=== PATIENT | female | born 2000 | race Caucasian/White ===

== ENCOUNTER 2020-12-28 10:29 | Emergency (ER) | payer OTHER ==
[2020-12-28 10:37] VITALS: TEMP 98
--- NOTE | 2020-12-28 10:56 | ED ---
Female Urogenital HPI - General Chief complaint: Vaginal Bleeding Stated complaint: Female Time Seen by Provider: 12/28/20 10:38 Source: patient, family Mode of arrival: ambulatory Limitations: no limitations - History of Present Illness Initial comments: 20-year-old female with history of dysmenorrhea and menorrhagia presents to the emergency department with the chief complaint of vaginal bleeding. States she has been experiencing continuous vaginal bleeding for the past 3 months. She is seen multiple medical assistant ob gyn with no exact cause of her symptoms. She was told to be started on oral contraceptives but cannot take an due to side effects of nausea, vomiting and migraines. States she is going through a pad every half hour and is noticing blood clots as well. She also reports feeling slightly lightheaded but not dizzy. Denies any chest pain or shortness of breath. Denies any possibility for . She reports strong family history of uterine fibroids, menorrhagia and dysmenorrhea. She underwent a 10 day course of Provera, oral tablets with no significant improvement in her bleeding but now she is also developed abdominal cramping after finishing the medication 3 days ago. These were prescribed by Dr Lemons out of [facility]. Denies any vaginal discharge or foul smell. Denies hematuria, hematochezia or melena. Denies any infectious or obstructive urinary symptoms. Denies any fevers or chills. - Related Data Home Medications Medication Instructions Recorded Confirmed Acyclovir 400 mg PO DAILY 12/28/20 12/28/20 Ibuprofen [Motrin] 800 mg PO Q8H PRN 12/28/20 12/28/20 Allergies Allergy/AdvReac Type Severity Reaction Status Date / Time No Known Allergies Allergy Verified 12/28/20 12:20 Review of Systems ROS Statement: Those systems with pertinent positive or pertinent negative responses have been documented in the HPI. ROS Other: All systems not noted in ROS Statement are negative. Past Medical History Past Medical History: No Reported History History of Any Multi-Drug Resistant Organisms: None Reported Past Surgical History: No Surgical Hx Reported Past Psychological History: No Psychological Hx Reported Smoking Status: Never smoker Past Alcohol Use History: None Reported Past Drug Use History: None Reported General Exam Limitations: no limitations General appearance: alert, in no apparent distress, obese Head exam: Present: atraumatic, normocephalic, normal inspection. Absent: other Eye exam: Present: normal appearance, PERRL, EOMI Pupils: Present: normal accommodation ENT exam: Present: normal exam, normal oropharynx, mucous membranes moist, TM's normal bilaterally, normal external ear exam Neck exam: Present: normal inspection, full ROM. Absent: tenderness Respiratory exam: Present: normal lung sounds bilaterally. Absent: respiratory distress, wheezes, rales, rhonchi, stridor Cardiovascular Exam: Present: regular rate, normal rhythm, normal heart sounds. Absent: systolic murmur GI/Abdominal exam: Present: soft. Absent: distended, tenderness, guarding Extremities exam: Present: normal inspection, full ROM, normal capillary refill. Absent: tenderness, pedal edema, joint swelling Back exam: Present: normal inspection, full ROM. Absent: tenderness, CVA tenderness (R), CVA tenderness (L), muscle spasm, paraspinal tenderness Neurological exam: Present: alert, oriented X3 Psychiatric exam: Present: normal affect, normal mood Skin exam: Present: warm, dry, intact, normal color Course Vital Signs 12/28/20 12/28/20 10:30 12:50 Temperature 98.0 F Pulse Rate 108 H 83 Respiratory 18 16 Rate Blood Pressure 111/85 133/84 O2 Sat by Pulse 99 97 Oximetry Medical Decision Making - Medical Decision Making 20-year-old female with history of dysmenorrhea and menorrhagia presents to the emergency department with the chief complaint of vaginal bleeding. Physical examination is unremarkable. Offered pelvic exam, she declined. Ultrasound reveals a 1 cm endometrial stripe. Some physiologic free fluid in the cul-de-sac. CBC CMP unremarkable. Coags within normal limits. UA shows hematuria likely from the vaginal bleeding. Patient already has an appointment scheduled back with her existing medical assistant ob gyn. Patient was also given IV fluids and Zofran. Strict return parameters were thoroughly discussed the patient was upsetting agreeable. Case discussed with Dr. Delong. - Lab Data Result diagrams: 12/28/20 11:02 12/28/20 11: Lab Results 12/28/20 12/28/20 12/28/20 Range/Units 11:02 11: 11: WBC 7.3 (3.8-10.6) k/uL RBC 4.47 (3.80-5.40) m/uL Hgb 12.8 (11.4-16.0) gm/dL Hct 38.0 (34.0-46.0) % MCV 85.1 (80.0-100.0) fL MCH 28.7 (25.0-35.0) pg MCHC 33.7 (31.0-37.0) g/dL RDW 13.5 (11.5-15.5) % Plt Count 352 (150-450) k/uL MPV 6.5 Neutrophils % 69 % Lymphocytes % 25 % Monocytes % 3 % Eosinophils % 0 % Basophils % 0 % Neutrophils # 5.1 (1.3-7.7) k/uL Lymphocytes # 1.8 (1.0-4.8) k/uL Monocytes # 0.3 (0-1.0) k/uL Eosinophils # 0.0 (0-0.7) k/uL Basophils # 0.0 (0-0.2) k/uL PT 10.8 (9.0-12.0) sec INR 1.0 (<1.2) APTT (22.0-30.0) sec Sodium (137-145) mmol/L Potassium (3.5-5.1) mmol/L Chloride (98-107) mmol/L Carbon Dioxide (22-30) mmol/L Anion Gap mmol/L BUN (7-17) mg/dL Creatinine (0.52-1.04) mg/dL Est GFR (CKD-EPI)AfAm (>60 ml/min/1.73 sqM) Est GFR (CKD-EPI)NonAf (>60 ml/min/1.73 sqM) Glucose (74-99) mg/dL Calcium (8.4-10.2) mg/dL Total Bilirubin (0.2-1.3) mg/dL AST (14-36) U/L ALT (4-34) U/L Alkaline Phosphatase (38-126) U/L Total Protein (6.3-8.2) g/dL Albumin (3.5-5.0) g/dL Urine Color Urine Appearance (Clear) Urine pH (5.0-8.0) Ur Specific [place] (1.001-1.035) Urine Protein (Negative) Urine Glucose (UA) (Negative) Urine Ketones (Negative) Urine Blood (Negative) Urine Nitrite (Negative) Urine Bilirubin (Negative) Urine Urobilinogen (<2.0) mg/dL Ur Leukocyte Esterase (Negative) Urine RBC (0-5) /hpf Urine WBC (0-5) /hpf Ur Squamous Epith Cells (0-4) /hpf Hyaline Casts (0-2) /lpf Urine Mucus (None) /hpf Urine HCG, Qual Not Detected (Not Detectd) Blood Type Blood Type Confirm Blood Type Recheck Bld Type Recheck Status Antibody Screen Spec Expiration Date 12/28/20 12/28/20 12/28/20 Range/Units 11:02 11:02 11:02 WBC (3.8-10.6) k/uL RBC (3.80-5.40) m/uL Hgb (11.4-16.0) gm/dL Hct (34.0-46.0) % MCV (80.0-100.0) fL MCH (25.0-35.0) pg MCHC (31.0-37.0) g/dL RDW (11.5-15.5) % Plt Count (150-450) k/uL MPV Neutrophils % % Lymphocytes % % Monocytes % % Eosinophils % % Basophils % % Neutrophils # (1.3-7.7) k/uL Lymphocytes # (1.0-4.8) k/uL Monocytes # (0-1.0) k/uL Eosinophils # (0-0.7) k/uL Basophils # (0-0.2) k/uL PT (9.0-12.0) sec INR (<1.2) APTT 22.6 (22.0-30.0) sec Sodium 141 (137-145) mmol/L Potassium 4.4 (3.5-5.1) mmol/L Chloride 105 (98-107) mmol/L Carbon Dioxide 24 (22-30) mmol/L Anion Gap 12 mmol/L BUN 15 (7-17) mg/dL Creatinine 0.92 (0.52-1.04) mg/dL Est GFR (CKD-EPI)AfAm >90 (>60 ml/min/1.73 sqM) Est GFR (CKD-EPI)NonAf 89 (>60 ml/min/1.73 sqM) Glucose 80 (74-99) mg/dL Calcium 10.0 (8.4-10.2) mg/dL Total Bilirubin 0.4 (0.2-1.3) mg/dL AST 22 (14-36) U/L ALT 13 (4-34) U/L Alkaline Phosphatase 102 (38-126) U/L Total Protein 7.8 (6.3-8.2) g/dL Albumin 4.7 (3.5-5.0) g/dL Urine Color Yellow Urine Appearance Clear (Clear) Urine pH 5.5 (5.0-8.0) Ur Specific [place] 1.026 (1.001-1.035) Urine Protein Negative (Negative) Urine Glucose (UA) Negative (Negative) Urine Ketones 1+ H (Negative) Urine Blood Large H (Negative) Urine Nitrite Negative (Negative) Urine Bilirubin Negative (Negative) Urine Urobilinogen <2.0 (<2.0) mg/dL Ur Leukocyte Esterase Trace H (Negative) Urine RBC 176 H (0-5) /hpf Urine WBC 2 (0-5) /hpf Ur Squamous Epith Cells 1 (0-4) /hpf Hyaline Casts 1 (0-2) /lpf Urine Mucus Many H (None) /hpf Urine HCG, Qual (Not Detectd) Blood Type Blood Type Confirm Blood Type Recheck Bld Type Recheck Status Antibody Screen Spec Expiration Date 12/28/20 12/28/20 Range/Units 11:11 11:20 WBC (3.8-10.6) k/uL RBC (3.80-5.40) m/uL Hgb (11.4-16.0) gm/dL Hct (34.0-46.0) % MCV (80.0-100.0) fL MCH (25.0-35.0) pg MCHC (31.0-37.0) g/dL RDW (11.5-15.5) % Plt Count (150-450) k/uL MPV Neutrophils % % Lymphocytes % % Monocytes % % Eosinophils % % Basophils % % Neutrophils # (1.3-7.7) k/uL Lymphocytes # (1.0-4.8) k/uL Monocytes # (0-1.0) k/uL Eosinophils # (0-0.7) k/uL Basophils # (0-0.2) k/uL PT (9.0-12.0) sec INR (<1.2) APTT (22.0-30.0) sec Sodium (137-145) mmol/L Potassium (3.5-5.1) mmol/L Chloride (98-107) mmol/L Carbon Dioxide (22-30) mmol/L Anion Gap mmol/L BUN (7-17) mg/dL Creatinine (0.52-1.04) mg/dL Est GFR (CKD-EPI)AfAm (>60 ml/min/1.73 sqM) Est GFR (CKD-EPI)NonAf (>60 ml/min/1.73 sqM) Glucose (74-99) mg/dL Calcium (8.4-10.2) mg/dL Total Bilirubin (0.2-1.3) mg/dL AST (14-36) U/L ALT (4-34) U/L Alkaline Phosphatase (38-126) U/L Total Protein (6.3-8.2) g/dL Albumin (3.5-5.0) g/dL Urine Color Urine Appearance (Clear) Urine pH (5.0-8.0) Ur Specific [place] (1.001-1.035) Urine Protein (Negative) Urine Glucose (UA) (Negative) Urine Ketones (Negative) Urine Blood (Negative) Urine Nitrite (Negative) Urine Bilirubin (Negative) Urine Urobilinogen (<2.0) mg/dL Ur Leukocyte Esterase (Negative) Urine RBC (0-5) /hpf Urine WBC (0-5) /hpf Ur Squamous Epith Cells (0-4) /hpf Hyaline Casts (0-2) /lpf Urine Mucus (None) /hpf Urine HCG, Qual (Not Detectd) Blood Type A Positive Blood Type Confirm A Positive Blood Type Recheck No Previous Record Bld Type Recheck Status CABO Indicated Antibody Screen NEGATIVE Spec Expiration Date 12/31/20202319 Disposition Clinical Impression: Vaginal bleeding Disposition: HOME SELF-CARE Condition: Stable Instructions (If sedation given, give patient instructions): Menorrhagia (ED) Additional Instructions: Follow-up with a medical assistant ob gyn. Return to emergency department if symptoms worsen. Is patient prescribed a controlled substance at d/c from ED?: No Referrals: Caleb Ruano MD [Primary Care Provider] - 1-2 days Time of Disposition: 13:14
[2020-12-28] MEDS: SODIUM CHLORIDE 0.9% 1,000 ML IV ONE (11:31)
[2020-12-28] MEDS: SODIUM CHLORIDE 0.9% 500 ML 500 ML IV ONE (11:32)
[2020-12-28 11:36] LABS: Basophils % (A) 0 %; Eosinophils % (A) 0 %; HGB 12.8 gm/dL (11.4-16.0); Lymphocytes # (A) 1.8 k/uL (1.0-4.8); Lymphocytes % (A) 25 %; MCH 28.7 pg (25.0-35.0); MCHC 33.7 g/dL (31.0-37.0); MCV 85.1 fL (80.0-100.0); Mean Platelet Volume 6.5; Monocytes # (A) 0.3 k/uL (0-1.0); Monocytes % (A) 3 %; Neutrophils # (A) 5.1 k/uL (1.3-7.7); Neutrophils % (A) 69 %; Platelet Count 352 k/uL (150-450); RBC 4.47 m/uL (3.80-5.40); RDW 13.5 % (11.5-15.5); WBC 7.3 k/uL (3.8-10.6)
[2020-12-28 11:45] LABS: ALT 13 U/L (4-34); AST 22 U/L (14-36); African American GFR (CKD) >90 (>60 ml/min/1.73 sqM); Albumin 4.7 g/dL (3.5-5.0); Alkaline Phosphatase 102 U/L (38-126); Anion Gap 12 mmol/L; Blood Urea Nitrogen 15 mg/dL (7-17); Carbon Dioxide 24 mmol/L (22-30); Chloride 105 mmol/L (98-107); Glucose 80 mg/dL (74-99); Non-African American GFR(CKD) 89 (>60 ml/min/1.73 sqM); Potassium 4.4 mmol/L (3.5-5.1); Sodium 141 mmol/L (137-145); Total Bilirubin 0.4 mg/dL (0.2-1.3); Total Protein 7.8 g/dL (6.3-8.2)
[2020-12-28 11:53] LABS: Appearance,Urine Clear (Clear); Bilirubin,Urine Negative (Negative); Blood,Urine Large (Negative); Color,Urine Yellow; Glucose,Urine (UA) Negative (Negative); Hyaline Casts,Urine 1 /lpf (0-2); Ketones,Urine 1+ (Negative); Leukocyte Esterase,Urine Trace (Negative); Mucus,Urine Many /hpf; Nitrite,Urine Negative (Negative); PH, Urine 5.5 (5.0-8.0); Protein,Urine Negative (Negative); RBC,Urine 176 /hpf (0-5); Specific Gravity,Urine 1.026 (1.001-1.035); Squamous Epithelial Cell,Urine 1 /hpf (0-4); Urobilinogen,Urine <2.0 mg/dL (<2.0); WBC,Urine 2 /hpf (0-5)
[2020-12-28 11:59] LABS: Prothrombin Time 10.8 sec (9.0-12.0)
[2020-12-28 12:51] VITALS: BP 133/84; PULSE 83; RESP 16
--- NOTE | 2020-12-28 12:51 | US ---
EXAMINATION TYPE: US transvaginal plus Doppler DATE OF EXAM: 12/28/2020 COMPARISON: None CLINICAL HISTORY: 20-year-old female vaginal bleeding since 09/21/2020. No hormones; G0 TECHNIQUE: Transvaginal (TV). Transvaginal sonographic images were medically necessary per EC physi zev. Color Doppler and spectral waveform analysis of the ovarian arteries and veins. Date of LMP: 09/21/2020 FINDINGS: EXAM MEASUREMENTS: Uterus: 7.9 x 5.3 x 4.4 cm Endometrial Stripe: 1.0 cm Right Ovary: 2.4 x 2.0 x 2.4 cm for a volume of 6.2 mL Left Ovary: 3.6 x 1.9 x 1.9 cm for a volume of 6.6 mL 1. Uterus: Retroverted 2. Endometrium: heterogeneous appearance especially on TR view, but patient having vaginal bleeding and unable to correlate thickness with September LMP. 3. Right Ovary: Multiple follicles with exophytic/paraovarian cyst seen = 2.0 x 1.3 x 1.3cm 4. Left Ovary: Multiple follicles, largest measuring 9 mm. Spectral, color and waveform doppler imaging shows good arterial and venous flow within the ovaries ; there is no evidence for ovarian torsion. 5. Bilateral Adnexa: wnl 6. Posterior cul-de-sac: Mild cul-de-sac free fluid. IMPRESSION: 1. Follicular change in both ovaries. No sonographic evidence for ovarian torsion. 2. Retroverted uterus. Endometrial stripe measuring 1.0 cm. 3. Mild cul-de-sac free fluid probably physiologic.
== END 2020-12-28 13:29 | disposition home or self-care (01) ==
LOC: EC 10:29
DX: N93.9 Abnormal uterine and vaginal bleeding, unspecified (principal)
CPT/HCPCS: 36415; 76830; 80053; 81001; 81025; 85025; 85610; 85730; 86850; 86900; 86901; 93975; 96360; 99284

== ENCOUNTER 2021-01-20 19:28 | Emergency (ER) | payer OTHER ==
[2021-01-20] MEDS ORDERED: KETOROLAC 15 MG/ML 1 ML VIAL IM STA (19:52)
[2021-01-20] MEDS ORDERED: LIDOCAINE 5% PATCH TOPICAL STA (19:52)
[2021-01-20] MEDS ORDERED: ORPHENADRINE 30 MG/ML 2 ML VIAL IM STA (19:52)
--- NOTE | 2021-01-20 20:23 | ED ---
General Adult HPI - General Chief complaint: Back Pain/Injury Stated complaint: Back Pain Time Seen by Provider: 01/20/21 19:42 Source: patient Mode of arrival: wheelchair Limitations: no limitations - History of Present Illness Initial comments: 20 year-old female patient presents to the emergency department for evaluation of right low back pain that started a couple of hours ago after bending down to slate picker a make up brush. She states that she felt a popping sensation and a burning/spasm in the low back when she bent forward. States it made her fall to the ground and she required assistance to get back into her bedroom. Denies any radiating pain down the legs. Denies any weakness, numbness, or tingling in the lower extremities. Denies saddle anesthesia or loss of bowel or bladder control. Denies any fever, chills, or abdominal pain. Denies history of back injury or pain. Denies chance of , states she had IUD placed 1 week ago. Denies any hematuria, dysuria, urinary urgency, or frequency. - Related Data Home Medications Medication Instructions Recorded Confirmed Acyclovir 400 mg PO DAILY 12/28/20 12/28/20 Ibuprofen [Motrin] 800 mg PO Q8H PRN 12/28/20 12/28/20 Previous Rx's Medication Instructions Recorded Cyclobenzaprine [Flexeril] 10 mg PO TID #15 tab 01/20/21 Ibuprofen [Motrin] 600 mg PO Q8HR PRN #30 tab 01/20/21 Lidocaine 5% Patch [Lidoderm] 1 patch TOPICAL DAILY #30 patch 01/20/21 Allergies Allergy/AdvReac Type Severity Reaction Status Date / Time No Known Allergies Allergy Verified 01/20/21 19:38 Review of Systems ROS Statement: Those systems with pertinent positive or pertinent negative responses have been documented in the HPI. ROS Other: All systems not noted in ROS Statement are negative. Past Medical History Past Medical History: No Reported History History of Any Multi-Drug Resistant Organisms: None Reported Past Surgical History: No Surgical Hx Reported Past Psychological History: No Psychological Hx Reported Smoking Status: Never smoker Past Alcohol Use History: None Reported Past Drug Use History: None Reported General Exam Limitations: no limitations General appearance: alert, in no apparent distress, other (Social well- developed, well-nourished adult female patient in no acute distress. Vital signs upon presentation temperature 98.6F, pulse 82, respirations 20, blood pressure 120/82, pulse ox 100% on room air.) ENT exam: Present: normal exam, normal oropharynx, mucous membranes moist Respiratory exam: Present: normal lung sounds bilaterally. Absent: respiratory distress, wheezes, rales, rhonchi, stridor Cardiovascular Exam: Present: regular rate, normal rhythm, normal heart sounds. Absent: systolic murmur, diastolic murmur, rubs, gallop, clicks GI/Abdominal exam: Present: soft, normal bowel sounds. Absent: distended, tenderness, guarding, rebound, rigid Extremities exam: Present: normal inspection, full ROM, normal capillary refill, other (Skin to the lower extremities is pink, warm, dry. Cap refill less than 3 seconds. Pedal posttibial pulses are 2+ and equal bilaterally.). Absent: tenderness, pedal edema, joint swelling, calf tenderness Back exam: Present: normal inspection, paraspinal tenderness (Right lumbar). Absent: vertebral tenderness Neurological exam: Present: alert, oriented X3, CN II-XII intact, other (Strength in lower extremities is 5/5.) Psychiatric exam: Present: normal affect, normal mood Skin exam: Present: warm, dry, intact, normal color. Absent: rash Course Vital Signs 01/20/21 01/20/21 19:35 21:03 Temperature 98.6 F 99.4 F Pulse Rate 82 77 Respiratory 20 16 Rate Blood Pressure 120/82 118/63 O2 Sat by Pulse 100 100 Oximetry Medical Decision Making - Medical Decision Making 20-year-old female patient presents for evaluation of low back pain after bending forward to pick something off the floor. Physical examination revealed mild right paralumbar tenderness. Neurovascular status is intact. She has no concerning symptoms or cauda equina. X-rays are negative. She'll be discharged with muscle relaxer, anti-inflammatory medication and Lidoderm patch. She is instructed to follow-up with her primary care physician for recheck in 1-2 days. Return parameters were discussed in detail. She verbalizes understanding and agrees with this plan. Case discussed with my attending Dr. Bernal. - Radiology Data Radiology results: report reviewed, image reviewed X-rays are obtained of the lumbosacral spine, impression reveals normal lumbar spine. Disposition Clinical Impression: Acute low back pain Disposition: HOME SELF-CARE Condition: Good Instructions (If sedation given, give patient instructions): Acute Low Back Pain (ED) Additional Instructions: Alternate ice and heat to the area. Take medications as directed. Perform gentle range of motion exercises after 24 hours. Follow-up with primary care physician for recheck in one to days. Return for any new, worsening, or concerning symptoms. Prescriptions: Cyclobenzaprine [Flexeril] 10 mg PO TID #15 tab Lidocaine 5% Patch [Lidoderm] 1 patch TOPICAL DAILY #30 patch Ibuprofen [Motrin] 600 mg PO Q8HR PRN #30 tab PRN Reason: Pain Is patient prescribed a controlled substance at d/c from ED?: No Referrals: Caleb Ruano MD [Primary Care Provider] - 1-2 days Time of Disposition: 20:45
--- NOTE | 2021-01-20 20:31 | XR ---
EXAMINATION TYPE: XR lumbosacral spine min 4V DATE OF EXAM: 01/20/2021 COMPARISON: NONE HISTORY: Low back pain TECHNIQUE: 5 views FINDINGS: Lumbar vertebra have normal alignment. Posterior elements are intact. Disc spaces are evangeilna l. There is no compression fracture. Sacroiliac joints appear normal. IMPRESSION: Normal lumbar spine.
[2021-01-20] MEDS ORDERED: CYCLOBENZAPRINE 10MG STARTER 3 TAB BTL PO STA (20:45)
[2021-01-20] MEDS ORDERED: IBUPROFEN 600 MG STARTER PACK 4 TAB BTL PO STA (20:45)
[2021-01-20 21:04] VITALS: BP 118/63; PULSE 77; RESP 16; TEMP 99.4
== END 2021-01-20 21:09 | disposition home or self-care (01) ==
LOC: EC 19:28
DX: M54.5 Low back pain (principal)
CPT/HCPCS: 72110; 99283; 96372 ×2; J2360; J1885